=== PATIENT | female | born 1950 | race Asian ===

== ENCOUNTER 2017-08-26 08:49 | Outpatient (CLI) | payer BC ==
[2017-08-26 09:09] LABS: PLATELET COUNT 346 K/uL (152-353)
== END 2017-08-26 22:28 | disposition home or self-care (01) ==
LOC: LABW 08:49
PROVIDERS: Internal Medicine
DX: E11.8 Type 2 diabetes mellitus with unspecified complications (principal); E55.9 Vitamin D deficiency, unspecified
CPT/HCPCS: 36415; 80053; 80061; 81000; 82043; 82306; 82570; 83036; 84443; 85027

== ENCOUNTER 2018-09-30 10:11 | Outpatient (CLI) | payer BC ==
[2018-09-30 10:45] LABS: PLATELET COUNT 323 K/uL (152-353)
[2018-09-30 11:24] LABS: POTASSIUM 4.8 mmol/L (3.6-5.2)
== END 2018-09-30 21:05 | disposition home or self-care (01) ==
LOC: LABW 10:11
PROVIDERS: Internal Medicine
DX: I10 Essential (primary) hypertension (principal); E78.2 Mixed hyperlipidemia; E11.9 Type 2 diabetes mellitus without complications
CPT/HCPCS: 36415; 80053; 80061; 83036; 84443; 85027

== ENCOUNTER 2020-07-11 13:41 | Outpatient (CLI) | payer OTHER | END 2020-07-11 19:25 | disposition home or self-care (01) | LOC: LAB 13:41 | PROVIDERS: ATTEND Internal Medicine | DX: R19.7 Diarrhea, unspecified (principal) | CPT/HCPCS: 82272; 83630; 87015; 87045; 87324; 87328; 87329; 87449; 87899 ==